=== PATIENT | male | born 1955 | race Caucasian/White ===

== ENCOUNTER 2019-05-11 08:15 | Day surgery (SDC) | payer OTHER ==
[~2019-05-11] VITALS: Ht 170.2 cm; Wt 116.6 kg
[~2019-05-11 08:15] MED LIST: AMLO10; ASPI81CH PO; Aspir 8181 MG; Augmentin 875-1 EACH PO; Azor 10-20 MG1 EACH; BUPR150ER; CEFP200 PO; Cleocin HCl300 MG PO; HYDR1TAB94 PO; Hair, Skin & N1 EACH PO; Hytrin2 MG; IBUP600; LEVO750 PO; LINE600 PO; LISI20 PO; MEMA5TAB; Omeprazole20 M1; PYRI100 PO; RISP1 PO; SACC250C; SPIR25 PO; TRAZ50; VENL150ER PO; Viagra100 MG
== END 2019-05-11 10:00 | disposition home or self-care (01) ==
LOC: ORSCSDS 08:15
PROVIDERS: Surgery
PROC: 0DBK8ZX Excision of Ascending Colon, Via Natural or Artificial Opening Endoscopic, Diagnostic (ICD-10-PCS; principal; 2019-05-11 09:15)
DX: Z12.11 Encounter for screening for malignant neoplasm of colon (principal); D12.2 Benign neoplasm of ascending colon; I10 Essential (primary) hypertension; G47.33 Obstructive sleep apnea (adult) (pediatric); K21.9 Gastro-esophageal reflux disease without esophagitis; E66.01 Morbid (severe) obesity due to excess calories; Z68.41 Body mass index [BMI] 40.0-44.9, adult; Z79.899 Other long term (current) drug therapy
CPT/HCPCS: 88305; J2704; J7120